=== PATIENT | male | born 1970 | race Caucasian/White ===

== ENCOUNTER 2017-05-16 08:27 | Emergency (ER) | payer BC ==
[2017-05-16 08:32] VITALS: BP 170/89
--- NOTE | 2017-05-16 08:49 | ER Document Report ---
ED Extremity Problem, Lower - General Chief Complaint: Foot Pain Stated Complaint: TOE PAIN Time Seen by Provider: 05/16/17 08:37 Mode of Arrival: Ambulatory Information source: Patient Notes: Patient is a 46-year-old male who presents to the ER today for ingrown toenail to the right great toe times about a week. Patient states that he is trying to take it out himself, "trim it up." He states that it has gotten infected and has pus coming from the area and is red, painful. He has been soaking intermittently which does help. He states that after soaking a few times it actually "cleared up." However the redness and pus is back again since yesterday. TRAVEL OUTSIDE OF THE [place] IN LAST 30 DAYS: No - Related Data Allergies/Adverse Reactions: No Known Allergies Allergy (Unverified 03/25/12 09:06) Past Medical History - General Information source: Patient - Social History Smoking Status: Never Smoker Chew tobacco use (# tins/day): No Frequency of alcohol use: Occasional Drug Abuse: None Family History: Reviewed & Not Pertinent Patient has suicidal ideation: No Patient has homicidal ideation: No - Past Medical History Cardiac Medical History: Reports: Hx Hypertension Denies: Hx Heart Attack Pulmonary Medical History: Denies: Hx Asthma Neurological Medical History: Denies: Hx Cerebrovascular Accident, Hx Seizures Renal/ Medical History: Denies: Hx Peritoneal Dialysis GI Medical History: Reports: Hx Gastroesophageal Reflux Disease. Denies: Hx Hepatitis, Hx Hiatal Hernia, Hx Ulcer Infectious Medical History: Denies: Hx Hepatitis Past Surgical History: Denies: Hx Open Heart Surgery, Hx Pacemaker Review of Systems - Review of Systems Constitutional: No symptoms reported EENT: No symptoms reported Cardiovascular: No symptoms reported Respiratory: No symptoms reported Gastrointestinal: No symptoms reported Genitourinary: No symptoms reported Male Genitourinary: No symptoms reported Musculoskeletal: No symptoms reported Skin: See HPI Hematologic/Lymphatic: No symptoms reported Neurological/Psychological: No symptoms reported Physical Exam - Vital signs Vitals: Temp Pulse Resp BP Pulse Ox 98.5 F 71 18 170/89 H 97 05/16/17 08:32 05/16/17 08:32 05/16/17 08:32 05/16/17 08:32 05/16/17 08:32 - Notes Notes: PHYSICAL EXAMINATION: GENERAL: Well-appearing and in no acute distress. HEAD: Atraumatic, normocephalic. EYES: Pupils equal round and reactive to light, extraocular movements intact, sclera anicteric, conjunctiva are normal. NECK: Normal range of motion, supple without lymphadenopathy LUNGS: CTAB and equal. No wheezes rales or rhonchi. HEART: Regular rate and rhythm without murmurs EXTREMITIES: Normal range of motion, no pitting edema. No cyanosis. NEUROLOGICAL: Cranial nerves grossly intact. Normal sensory/motor exams. PSYCH: Normal mood, normal affect. SKIN: Warm, Dry, normal turgor, erythema and purulence from medial side of right great toenail with ingrown toenail, tender to palpation Course - Re-evaluation Re-evalutation: 05/16/17 09:48 Patient placed on antibiotics and advised to soak in his hot water as he can stand with Epsom salt at least 4 times a day. 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 - Vital Signs Vital signs: Temp Pulse Resp BP Pulse Ox 98.5 F 71 18 170/89 H 97 05/16/17 08:32 05/16/17 08:32 05/16/17 08:32 05/16/17 08:32 05/16/17 08:32 Discharge - Discharge Clinical Impression: Ingrown toenail of right foot with infection Condition: Stable Disposition: HOME, SELF-CARE Additional Instructions: Return immediately for any new or worsening symptoms. Follow up with podiatry, call tomorrow to make followup appointment. Prescriptions: Sulfamethoxazole/Trimethoprim [Bactrim Ds Tablet] 1 each PO BID #20 tablet Referrals: SUMANTH HER MD [Primary Care Provider] - Follow up as needed
== END 2017-05-16 09:00 | disposition home or self-care (01) ==
LOC: ER 08:27
DX: L60.0 Ingrowing nail (principal); L03.031 Cellulitis of right toe; I10 Essential (primary) hypertension
CPT/HCPCS: 99283

== ENCOUNTER 2017-06-10 06:38 | Day surgery (SDC) | payer BC ==
[2017-06-10] MEDS ORDERED: GLYCOPYRROLATE INJ 0.4 MG/2 ML VIAL ONE (07:03)
[2017-06-10] MEDS ORDERED: NALOXONE HCL INJ/PF 0.4 MG/1 ML SDV ONE (07:03)
[2017-06-10] MEDS ORDERED: ONDANSETRON HCL INJ/PF 4 MG/2 ML SDV ONE (07:03)
[2017-06-10] MEDS ORDERED: GLUCAGON,HUMAN RECOMB 1 MG INJ ONE (07:04)
[2017-06-10] MEDS ORDERED: FENTANYL CITRATE INJ/PF 100 MCG/2 ML AMPUL ONE (07:04)
[2017-06-10] MEDS ORDERED: FLUMAZENIL INJ 0.5 MG/5 ML VIAL ONE (07:04)
[2017-06-10] MEDS ORDERED: EPINEPHRINE INJ 1 MG/10 ML DISP.SYRIN ONE (07:04)
[2017-06-10] MEDS: MIDAZOLAM 2 MG/2 ML INJ ONE ×4 (07:30→07:40)
--- NOTE | 2017-06-10 08:24 | Discharge Summary ---
Discharge Summary (SDC) - Discharge Final Diagnosis: Scattered diverticulosis Date of Surgery: 06/10/17 Discharge Date: 06/10/17 Condition: Good Treatment or Instructions: [facility] [place] [id number] POST ENDOSCOPY DISCHARGE INSTRUCTIONS 1. Diet: Start clear liquids that a regular diet as tolerated. 2. Resume all preoperative medications. All oral anticoagulants and aspirins can be resumed 24 hours after procedure. 3. If a polypectomy was performed some bleeding per rectum may occur. This should stop within 3 days. If not, please contact the office. 4. If you had a colonoscopy you may experience some bloating and delayed return of normal bowel function for several days, your regular bowel movement pattern should resume within a week. 5. Please contact [facility] at to make an appointment with Dr. Rodriguez for 1 to 3 weeks following procedure. 6. If you have any questions or concerns regarding your care,treatment plan or follow up, please contact our office. 7. Per clinical guidelines we recommend you undergo a repeat colonoscopy in 5- 7 years. Referrals: SUMANTH HER MD [Primary Care Provider] - Discharge Diet: As Tolerated Discharge Activity: Activity As Tolerated Home Care Assistance: None Needed Report the Following to Your Physician Immediately: Shortness of Breath, Increase in Pain, Fever over 101 Degrees
--- NOTE | 2017-06-10 08:26 | Operative Report ---
Operative Report DATE OF SURGERY: 06/10/17 PREOPERATIVE DIAGNOSIS: 1. Strong family history of colorectal carcinoma POSTOPERATIVE DIAGNOSIS: Same with scattered diverticulosis disease; otherwise normal colonoscopy OPERATION: Total colonoscopy to cecum with photodocumentation SURGEON: ALEKSEY FREITAS ANESTHESIA: Moderate Sedation TISSUE REMOVED OR ALTERED: None COMPLICATIONS: None ESTIMATED BLOOD LOSS: None INTRAOPERATIVE FINDINGS: See below PROCEDURE: Obtaining informed consent the patient was taken from the preoperative holding area to the main endoscopy suite where monitoring devices were attached to the patient. Plan and surgical timeout were conducted The patient was placed in the left lateral decubitus position with knees to chest. A perianal examination was performed. There was no visible or palpable anorectal pathology. Sphincter tone was felt to be normal. The flexible adult colonoscope was advanced through the anal rectal canal, all the way to the cecum. Visualization of the cecum was achieved and the ileocecal valve, the appendiceal orifice and transillumination of the anterior abdominal wall was achieved. This was an excellent study on the well-prepped bowel. The colonoscope was withdrawn slowly and methodically checked and the mucosa carefully. There was no evidence of tumor, stricture, bleeding or polyp. There were scattered diverticulosis, no more than 5 on the right colon. The scope was slowly withdrawn through the anal rectal canal. Complete visualization of the rectum was achieved with photodocumentation. The scope was withdrawn to the patient's anus. The patient tolerated the procedure well and was taken to the recovery area in stable condition. Given patient's strong family history of colorectal carcinoma young age, we have recommended endoscopy in 5-7 years.
[2017-06-10 09:12] VITALS: BP 123/75
== END 2017-06-10 09:02 | disposition home or self-care (01) ==
LOC: END 06:38
PROVIDERS: ATTEND Surgery
DX: Z12.11 Encounter for screening for malignant neoplasm of colon (principal); K57.30 Diverticulosis of large intestine without perforation or abscess without bleeding; Z80.0 Family history of malignant neoplasm of digestive organs; K21.9 Gastro-esophageal reflux disease without esophagitis; I10 Essential (primary) hypertension; F17.210 Nicotine dependence, cigarettes, uncomplicated; Z79.899 Other long term (current) drug therapy
CPT/HCPCS: 45378; J2250; J3010; J0171; J1610; J2310; J2405; J3490

== ENCOUNTER 2018-07-15 20:15 | Emergency (ER) | payer BC ==
[2018-07-15 20:31] VITALS: BP 157/84
[2018-07-15] MEDS ORDERED: ASPIRIN 81 MG TABLET, CHEWABLE PO ONE (21:58)
[2018-07-15] MEDS ORDERED: ONDANSETRON HCL INJ/PF 4 MG/2 ML SDV IV ONE (21:59)
--- NOTE | 2018-07-15 22:00 | ER Document Report ---
ED Medical Screen (RME) - General Chief Complaint: Chest Pain Stated Complaint: CHEST PAIN Time Seen by Provider: 07/15/18 21:58 Primary Care Provider: SUMANTH HER MD [Primary Care Provider] - Follow up as needed Notes: Patient is a 48-year-old male history of hypertension on 2 different hypertensive medications presents to the emergency department for pain in the left side of his chest. States the pain is been there for the last 3 days sharp and constant. States he had over 10 episodes of vomiting today and states the pain has increased which is why he presents to the emergency room. Patient's denying any blood in his emesis is denying any fever or diarrhea. Patient is denying any shortness of breath. States at times he feels as of the pain in the left side of his chest may increase upon deep palpation but he is denying any pain upon deep inspiration or movement of his left shoulder and arm. States at times the pain does move down his left arm. GENERAL: Alert, interacts well. No acute distress. LUNGS: Clear to auscultation bilaterally, no wheezes, rales, or rhonchi. No respiratory distress. HEART: Regular rate and rhythm. No murmur I have greeted and performed a rapid initial assessment of this patient. A comprehensive ED assessment and evaluation of the patient, analysis of test results and completion of the medical decision making process will be conducted by additional ED providers. TRAVEL OUTSIDE OF THE [place] IN LAST 30 DAYS: No - Related Data Allergies/Adverse Reactions: No Known Allergies Allergy (Verified 07/15/18 20:19) Past Medical History - Past Medical History Cardiac Medical History: Reports: Hx Hypertension Denies: Hx Coronary Artery Disease, Hx Heart Attack Pulmonary Medical History: Denies: Hx Asthma, Hx Bronchitis, Hx COPD, Hx Pneumonia Neurological Medical History: Denies: Hx Cerebrovascular Accident, Hx Seizures Renal/ Medical History: Denies: Hx Peritoneal Dialysis GI Medical History: Reports: Hx Gastroesophageal Reflux Disease. 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 Infectious Medical History: Denies: Hx Hepatitis Past Surgical History: Denies: Hx Open Heart Surgery, Hx Pacemaker - Immunizations Hx Diphtheria, Pertussis, Tetanus Vaccination: Yes Physical Exam - Vital signs Vitals: Temp Pulse Resp BP Pulse Ox 98.7 F 101 H 15 157/84 H 95 07/15/18 20:29 07/15/18 20:29 07/15/18 20:29 07/15/18 20:29 07/15/18 20:29 Course - Vital Signs Vital signs: Temp Pulse Resp BP Pulse Ox 98.7 F 101 H 15 157/84 H 95 07/15/18 20:29 07/15/18 20:29 07/15/18 20:29 07/15/18 20:29 07/15/18 20:29 Doctor's Discharge - Discharge Referrals: SUMANTH HER MD [Primary Care Provider] - Follow up as needed
--- NOTE | 2018-07-15 22:28 | RADIOLOGY REPORT (SQ) ---
EXAM DESCRIPTION: XR CHEST 1 VIEW COMPLETED DATE/TME: 07/15/2018 21:59 CLINICAL HISTORY: 48 years, Male, CP COMPARISON: None. NUMBER OF VIEWS: 1 TECHNIQUE: Portable chest LIMITATIONS: None. FINDINGS: The heart size is normal. Mild elevation right hemidiaphragm. Lungs clear. No pneumothorax IMPRESSION: No acute cardiopulmonary process copyright 2010 [employer]- All Rights Reserved
[2018-07-15 23:19] LABS: HEMATOCRIT 49.1 % (37.9-51.0); HEMOGLOBIN 16.4 g/dL (13.5-17.0); MEAN CORPUSCULAR HEMOGLOBIN 29.8 pg (27.0-33.4); MEAN CORPUSCULAR HGB CONC 33.4 g/dL (32.0-36.0); MEAN CORPUSCULAR VOLUME 89 fl (80-97); PLATELET COUNT 360 10^3/uL (150-450); RED BLOOD COUNT 5.51 10^6/uL (4.35-5.55); RED CELL DISTRIBUTION WIDTH 14.6 % (11.5-14.0); WHITE BLOOD COUNT 18.1 10^3/uL (4.0-10.5)
[2018-07-15 23:37] LABS: ALANINE AMINOTRANSFERASE 40 U/L (21-72); ALBUMIN 4.6 g/dL (3.5-5.0); ALKALINE PHOSPHATASE 39 U/L (38-126); ANION GAP 13 (5-19); ASPARTATE AMINO TRANSFERASE 41 U/L (17-59); BILIRUBIN,DIRECT 0.3 mg/dL (0.0-0.4); BILIRUBIN,TOTAL 0.5 mg/dL (0.2-1.3); BLOOD UREA NITROGEN 17 mg/dL (7-20); CALCIUM 9.6 mg/dL (8.4-10.2); CARBON DIOXIDE 27 mmol/L (22-30); CHLORIDE 99 mmol/L (98-107); CREATINE KINASE 342 U/L (55-170); GLUCOSE 102 mg/dL (75-110); POTASSIUM 4.3 mmol/L (3.6-5.0); SODIUM 139.1 mmol/L (137-145); TOTAL PROTEIN 7.3 g/dL (6.3-8.2)
[2018-07-15 23:40] LABS: ABSOLUTE LYMPHOCYTES# (MANUAL) 0.7 10^3/uL (0.5-4.7); ABSOLUTE MONOCYTES # (MANUAL) 0.7 10^3/uL (0.1-1.4); ABSOLUTE NEUTROPHILS# (MANUAL) 16.1 10^3/uL (1.7-8.2); BASOPHILS % (MANUAL) 0 % (0-2); EOSINOPHILS % (MANUAL) 3 % (0-6); LYMPHOCYTES % (MANUAL) 3 % (13-45); MONOCYTES % (MANUAL) 4 % (3-13); SEGMENTED NEUTROPHILS % (MAN) 89 % (42-78); TOTAL CELLS COUNTED 100
[2018-07-15 23:41] LABS: ANISOCYTOSIS SLIGHT; PLATELET COMMENT ADEQUATE; TOXIC GRANULATION SLIGHT
[2018-07-15 23:48] LABS: CREATINE KINASE MB 3.39 ng/mL (<4.55)
[2018-07-15 23:51] LABS: TROPONIN I < 0.012 ng/mL
--- NOTE | 2018-07-16 23:47 | EKG REPORT ---
SEVERITY:- NORMAL ECG - SINUS RHYTHM : Confirmed by: Ailyn Davila MD 16-Jul-2018 23:46:17
== END 2018-07-15 23:30 | disposition left against medical advice (07) ==
LOC: ER 20:15
DX: R07.9 Chest pain, unspecified (principal); R11.10 Vomiting, unspecified; I10 Essential (primary) hypertension; Z79.899 Other long term (current) drug therapy; Z53.20 Procedure and treatment not carried out because of patient's decision for unspecified reasons
CPT/HCPCS: 36415; 71045; 80053; 82550; 82553; 84484; 85025; 93005; 93010; 99281

== ENCOUNTER 2018-11-10 06:31 | Emergency (ER) | payer BC ==
[2018-11-10 06:42] VITALS: BP 194/89
[2018-11-10] MEDS ORDERED: LIDOCAINE 1% INJ (10 MG/ML) 10 ML MDV INJ ONE (07:01)
[2018-11-10] MEDS ORDERED: BUPIVACAINE HCL 0.5 % INJ/PF 30 ML SDV INJ ONE (07:01)
--- NOTE | 2018-11-10 07:03 | ER Document Report ---
HPI - HPI Time Seen by Provider: 11/10/18 06:58 Pain Level: 1 Context: Patient is a 48-year-old male that comes to the emergency department for chief complaint of a fishhook stuck in his left thumb. He states that it was brand- new, straight out of the box, he was packing for use later today when he accidentally caught the hook in his thumb and could not get it out. He is up-to-date on his tetanus within 5 years. He denies any other injuries or any other complaints. - REPRODUCTIVE Reproductive: DENIES: : Past Medical History - General Information source: Patient - Social History Smoking Status: Never Smoker Frequency of alcohol use: Occasional Drug Abuse: None Lives with: Family Family History: Reviewed & Not Pertinent Patient has suicidal ideation: No Patient has homicidal ideation: No - Past Medical History Cardiac Medical History: Reports: Hx Hypertension Denies: Hx Coronary Artery Disease, Hx Heart Attack Pulmonary Medical History: Denies: Hx Asthma, Hx Bronchitis, Hx COPD, Hx Pneumonia Neurological Medical History: Denies: Hx Cerebrovascular Accident, Hx Seizures Renal/ Medical History: Denies: Hx Peritoneal Dialysis GI Medical History: Reports: Hx Gastroesophageal Reflux Disease. 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 IN LAST 30 DAYS: No - HEENT HEENT: Atraumatic, Normocephalic - NECK Neck: Normal Inspection - RESPIRATORY Respiratory: Breath Sounds Normal, No Respiratory Distress - CARDIOVASCULAR Cardiovascular: Regular Rate, Regular Rhythm - GI/ABDOMEN Gastrointestinal: Abdomen Soft, Abdomen Non-Tender - BACK Back: Normal Inspection - MUSCULOSKELETAL/EXTREMETIES Musculoskeletal/Extremeties: MAEW, FROM, Tender - 1 of the 3 prongs of the fish hook is embedded over the lateral aspect of the left thumb just past the DIP. DIP range of motion intact, capillary refill and sensation intact, normal hand and thumb exam otherwise. - NEURO Level of Consciousness: Awake, Alert, Appropriate Motor/Sensory: No Motor Deficit, No Sensory Deficit - DERM Integumentary: Warm, Dry, No Rash Course - Re-evaluation Re-evalutation: I recommended an x-ray to evaluate where the hook had penetrated but patient declined. I discussed the reasoning for this but he declined. Tetanus is up-to-date. Digital block was performed, hook was cut, I was unable to position this to protrude the hook through the skin so I had to place a small cut with a scalpel adjacent to the nicole of the hook and then pull the hook out the same weight went in. This was performed without difficulty. No significant bleeding or deficits noted afterwards. Wound was clean, patient states this is never been in the water but because of the location of the wound we did decide to place him on prophylaxis with simply Keflex without appearing to need vibrio coverage. Discussed expectations, follow-up, and return precautions. Patient states understanding and appreciation. - Vital Signs Vital signs: Temp Pulse Resp BP Pulse Ox 98.1 F 89 17 194/89 H 96 11/10/18 06:37 11/10/18 06:37 11/10/18 06:37 11/10/18 06:37 11/10/18 06:37 Procedures - Additional Procedures Left thumb foreign body removal Additional Procedures: Other - Foreign body removal performed over left lateral thumb just past the DIP. Digital block was placed using a total of 6 mL's of combined 0.5% bupivacaine and 1% lidocaine with excellent results. Small incision was made adjacent to the at the bar with a scalpel, hook was then grasped with needle drivers and removed back in the way it came in without difficulty. No significant bleeding or deficits noted afterwards. Hook was removed and appeared completely intact. Discharge - Discharge Clinical Impression: Fishing hook foreign body Qualifiers: Encounter type: initial encounter Qualified Code(s): W45.8XXA - Other foreign body or object entering through skin, initial encounter Condition: Stable Disposition: HOME, SELF-CARE Instructions: Oral Narcotic Medication ([facility]) Additional Instructions: The fishhook foreign body has been removed. Keep area clean, clean with soap and water, apply topical antibiotic. Take prophylactic antibiotic as prescribed. Take ibuprofen or Tylenol for pain, take stronger pain medicine only for severe pain. Follow-up with primary care. Return for any concerning symptoms including developing pain, swelling, redness, discolored discharge, or any other concerning symptoms. Prescriptions: Cephalexin Monohydrate [Keflex 500 mg Capsule] 500 mg PO TID #15 capsule Referrals: SUMANTH HER MD [Primary Care Provider] - Follow up as needed
[2018-11-10] MEDS ORDERED: HYDROCODONE/ACETAMINOPHEN 5-325 MG (6 TAB/ER DISP) PO PRN (07:32)
== END 2018-11-10 07:58 | disposition home or self-care (01) ==
LOC: ER 06:31
DX: S61.042A Puncture wound with foreign body of left thumb without damage to nail, initial encounter (principal); W45.8XXA Other foreign body or object entering through skin, initial encounter; Y93.89 Activity, other specified; I10 Essential (primary) hypertension
CPT/HCPCS: 99283; 10120; J3490

== ENCOUNTER 2019-09-27 08:26 | Emergency (ER) | payer BC ==
[2019-09-27 09:27] VITALS: BP 140/71
--- NOTE | 2019-09-27 10:16 | ER Document Report ---
ED Fever - General Chief Complaint: Fever Stated Complaint: TONGUE SWELLING,COUGH,FEVER Time Seen by Provider: 09/27/19 09:32 Primary Care Provider: SUMANTH HER MD [Primary Care Provider] - Follow up as needed Mode of Arrival: Ambulatory Information source: Patient TRAVEL OUTSIDE OF THE [place] IN LAST 30 DAYS: No - HPI Notes: Patient presents with throat and tongue pain and swelling for 3 days. He states that he is also had fever and dry cough at home. He states he had a COVID test yesterday at his primary care doctor's office but the results are not yet in. He states no one else in the family has any similar symptoms. He states he has noticed sores all over his tongue and lips and that it is painful to eat or drink. He states the pain is constant and worse when eating or drinking and better with rest. The pain does not radiate. It is moderate to severe in a burning sensation. He states he got some medications that include Benadryl and lidocaine from his primary care doctor yesterday but these have not helped. - Related Data Allergies/Adverse Reactions: No Known Allergies Allergy (Verified 09/27/19 09:47) Past Medical History - General Information source: Patient - Social History Smoking Status: Never Smoker Frequency of alcohol use: None Drug Abuse: None Family History: Reviewed & Not Pertinent Patient has homicidal ideation: No - Past Medical History Cardiac Medical History: Reports: Hx Hypertension Denies: Hx Coronary Artery Disease, Hx Heart Attack Pulmonary Medical History: Denies: Hx Asthma, Hx Bronchitis, Hx COPD, Hx Pneumonia Neurological Medical History: Denies: Hx Cerebrovascular Accident, Hx Seizures Renal/ Medical History: Denies: Hx Peritoneal Dialysis GI Medical History: Reports: Hx Gastroesophageal Reflux Disease. 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 Denies: Hx Open Heart Surgery, Hx Pacemaker - Immunizations Hx Diphtheria, Pertussis, Tetanus Vaccination: Yes Review of Systems - Review of Systems Constitutional: Chills, Fever Cardiovascular: denies: Chest pain, Palpitations Respiratory: Cough. denies: Short of breath -: Yes All other systems reviewed and negative Physical Exam - Vital signs Vitals: Temp 99.1 F 09/27/19 09:00 Interpretation: Normal - General General appearance: Appears well, Alert - HEENT Head: Normocephalic, Atraumatic Eyes: Normal Pupils: PERRL Mucous membranes: Moist Pharynx: Erythema, Other - Multiple aphthous ulcers are seen in the posterior pharynx. Patient also has numerous aphthous ulcers about the tongue and lips. No: Potential airway comprom. Neck: Normal - Respiratory Respiratory status: No respiratory distress Chest status: Nontender Breath sounds: Normal Chest palpation: Normal - Cardiovascular Rhythm: Regular Heart sounds: Normal auscultation Murmur: No - Abdominal Inspection: Normal Distension: No distension Bowel sounds: Normal Tenderness: Nontender Organomegaly: No organomegaly - Back Back: Normal, Nontender - Extremities General upper extremity: Normal inspection, Nontender, Normal color, Normal ROM, Normal temperature General lower extremity: Normal inspection, Nontender, Normal color, Normal ROM, Normal temperature, Normal weight bearing. No: Kush's sign - Neurological Neuro grossly intact: Yes Cognition: Normal Orientation: AAOx4 [place] Coma Scale Eye Opening: Spontaneous Ingrid Coma Scale Verbal: Oriented Ingrid Coma Scale Motor: Obeys Commands Ingrid Coma Scale Total: 15 Speech: Normal Motor strength normal: LUE, RUE, LLE, RLE Sensory: Normal - Psychological Associated symptoms: Normal affect, Normal mood - Skin Skin Temperature: Warm Skin Moisture: Dry Skin Color: Normal Course - Re-evaluation Re-evalutation: 09/27/19 10:17 Patient appears to have a significant case of ulcerative stomatitis. I called and discussed the case with the ear nose and throat doctor, Dr. Acuna. He asked me to give the patient medications and include antibiotics by mouth as well as antibiotic ointment. He also fax me over a compound suspension that the patient is to swish and swallow. I have called all of these medications into the patient's drugstore. - Vital Signs Vital signs: Temp Pulse Resp BP Pulse Ox 99.1 F 93 18 140/71 H 99 09/27/19 09:25 09/27/19 09:25 09/27/19 09:25 09/27/19 09:25 09/27/19 09:25 Discharge - Discharge Clinical Impression: Stomatitis, ulcerative Condition: Stable Disposition: HOME, SELF-CARE Instructions: Viral Syndrome ([facility]) Additional Instructions: If your condition worsens before you are able to see the ear nose and throat doctor, then please return to the emergency department for evaluation. Prescriptions: Hydrocodone/Acetaminophen [Lortab 7.5-325 mg/15 ml Oral Soln] 10 ml PO Q6H PRN 3 Days #120 ml PRN Reason: Forms: Return to Work Referrals: MARY ACUNA DO [ASSOCIATE] - 10/12/19 1:00 pm
== END 2019-09-27 10:29 | disposition home or self-care (01) ==
LOC: ER 08:26
DX: K12.1 Other forms of stomatitis (principal); K12.0 Recurrent oral aphthae; R50.9 Fever, unspecified; R05 Cough; I10 Essential (primary) hypertension
CPT/HCPCS: 99283

== ENCOUNTER → 2019-12-15 | Outpatient (CLI) | payer BC ==
--- NOTE | 2019-12-15 16:24 | RADIOLOGY REPORT (SQ) ---
EXAM DESCRIPTION: MRI LT UPPER JOINT WITHOUT IMAGES COMPLETED DATE/TIME: 12/15/2019 8:05 am REASON FOR STUDY: M66.822 SPONTANEOUS RUPTURE OF OTHER TENDONS, LEFT UPPER ARM M66.822 SPONTANEOUS RUPTURE OF OTHER TENDONS, LEFT UPPER ARM COMPARISON: None. TECHNIQUE: Left elbow images acquired and stored on PACS. Multiplanar images to include fat sensiti ve sequences as T1, fluid sensitive sequences as T2/STIR, cartilage sensitive sequences as FSPD, and gradient echo sequences. LIMITATIONS: None. FINDINGS: BONE MARROW: No alteration of signal to suggest marrow replacement or edema. No occult fra cture. No large osteophytes. JOINT EFFUSION: None noted. No loose bodies. ARTICULAR SURFACES: Normal. MEDIAL COLLATERAL LIGAMENT COMPLEX: Intact without edema or tear. MEDIAL EPICONDYLE AND COMMON FLEXOR TENDON: No tendinopathy. No partial or full-thickness tear. LATERAL COLLATERAL LIGAMENT: Partial tear proximally. LATERAL EPICONDYLE AND COMMON EXTENSOR TENDON: Epicondyle normal. Partial tear at origin of the comm on extensor tendon. LATERAL ULNAR COLLATERAL LIGAMENT: Intact without evidence for tear. BICEPS TENDON: Completely torn and retracted with a bald of appearance. Fluid along the expected cou rse tracking to the musculotendinous junction. Retraction is greater than 10 cm. TRICEPS TENDON: Intact. ULNAR NERVE: Well-visualized without edema or encroachment. ADJACENT SOFT TISSUES: No masses or edema. OTHER: No other significant finding. IMPRESSION: 1. Complete biceps disruption with retraction. 2. Lateral epicondylitis. TECHNICAL DOCUMENTATION: JOB ID: [id number] 2010 [employer]- All Rights Reserved Reading location - IP/workstation name: [email or web address]
== END ==
LOC: RAD 07:19
PROVIDERS: ATTEND Physician Assistant
DX: M66.822 Spontaneous rupture of other tendons, left upper arm (principal)

== ENCOUNTER → 2019-12-21 | Outpatient (CLI) | payer BC ==
[2019-12-21 19:01] LABS: POTASSIUM 4.2 mmol/L (3.6-5.0)
== END ==
LOC: LAB 17:09
PROVIDERS: ATTEND Anesthesiology
DX: Z01.812 Encounter for preprocedural laboratory examination (principal)
CPT/HCPCS: 36415; 80051

== ENCOUNTER 2019-12-26 20:45 | Emergency (ER) | payer BC ==
[2019-12-26 20:55] VITALS: BP 145/67
--- OUTSIDE RECORDS SUMMARY | 2019-12-28 17:45 | XMS REPORT ---
:1970 [facility] [address] [place] [address] Care Team Providers Name Role Phone Unavailable Unavailable Unavailable Allergies, Adverse Reactions, Alerts This patient has no known allergies or adverse reactions. Medications Ordered Filled Start Stop Current Ordering Indication Dosage Frequency Signature Comments Components Medication Medication Date Date Medication? Clinician (SIG) Name Name lansoprazol No lansoprazo e 30 mg le 30 mg capsule,del capsule,de ayed layed release release lisinopril No lisinopril 20 20 mg-hydrochl mg-hydroch orothiazide lorothiazi 12.5 mg de 12.5 mg tablet tablet meloxicam No meloxicam 15 mg 15 mg tablet tablet Keflex 500 No 1capsul QID Keflex 500 mg capsule e(s) mg capsule Take 1 Take 1 capsule 4 capsule 4 times a day times a by oral day by route for 3 oral route days. for 3 days. Percocet 5 No Percocet 5 mg-325 mg mg-325 mg tablet Take tablet 1 tablet Take 1 EVERY 4-6 tablet HOURS by EVERY 4-6 oral route. HOURS by oral route. promethazin No 1 Q6H promethazi e 25 mg ne 25 mg tablet Take tablet 1 tablet Take 1 every 6 tablet hours by every 6 oral route hours by as needed. oral route as needed. Problems Condition Condition Condition Status Onset Resolution Last Treatin g Comments Name Details Category Date Date Treatment Clinician Date Knee joint Knee Joint Problem Active effusion Effusion 5-14 00:00: 00 Derangement Derangement Problem Active of knee of Knee 4-20 00:00: 00 Osteoarthri Osteoarthri Problem Active tis of knee tis of Knee 4-10 00:00: 00 Knee pain Knee Pain Problem Active 05-25 00:00: 00 Procedures Procedure Date / Time Performed Performing Clinician Lowell burton XR, elbow 2019-12-11 00:00:00 MRI, elbow, w/o contrast 2019-12-11 00:00:00 Knee Surgery 2014-07-12 00:00:00 Knee Surgery 2000-02-16 00:00:00 Knee Surgery 1995-02-15 00:00:00 Results This patient has no known results. Assessments Condition Name Status Diagnosis Date Treating Clinici an Tear of distal tendon of biceps brachii Active 07:40:19 Muscle atrophy Active 2019-12-21 15:38:11 Tear of distal tendon of biceps brachii Active 15:25:18 Rupture of tendon of biceps Active 2019-12-11 14:37:48 Pain in elbow Active 2019-12-11 14:13:36 Tear of distal tendon of biceps brachii Active 14:46:48 Encounters Start End Encounter Admission Attending Care Care Encounter Date/Time Date/Time Type Type Clinicians Facility Department ID 2019-12-21 2019-12-21 [id number] 00:00:00 00:00:00 DAVID Galindo ho, P.A. , P.A. 23849 PA-C: [address] [place] [phone], Ph. 2019-12-18 2019-12-18 [id number] 00:00:00 00:00:00 MD Reanna: Lila campa , P.A. [address] [place] [phone], Ph. 2019-12-11 2019-12-11 [facility] 9464 [id number] 00:00:00 00:00:00 DAVID Galindo ho, P.A. , P.A. [address] PA-C: [address] [phone], Ph. Plan of Treatment Planned Activity Planned Date Details Comments Future Appointment 2020-02-05 09:25:00 Gabriel Forte, [address] [facility] [address]; , [place] [address] Future Appointment 2020-01-15 10:40:00 Federico Galindo, [address] [place] [address]; [address], [place] [address] Future Appointment 2020-01-08 09:55:00 Federico Galindo, [address] [facility]; [address], [place] [address] Future Appointment 2019-12-29 10:30:00 Woody Ruiz, [address]; , [place] [address] Social History Smoking Status Start Date Stop Date Never Smoker Vital Signs Vital Name Observation Time Observation Value Comments Height 2019-12-21 00:00:00 75 [in_i] BMI (Body Mass Index) 2019-12-21 00:00:00 30 kg/m2 Body Weight 2019-12-21 00:00:00 240 [lb_av] Height 2019-12-11 00:00:00 75 [in_i] BMI (Body Mass Index) 2019-12-11 00:00:00 30 kg/m2 Body Weight 2019-12-11 00:00:00 240 [lb_av] Height 2019-12-11 00:00:00 75 [in_i] BMI (Body Mass Index) 2019-12-11 00:00:00 30 kg/m2 Body Weight 2019-12-11 00:00:00 240 [lb_av] Hospital Discharge Instructions 1. Pain in elbow XR, elbow 2. Rupture of tendon of biceps MRI, elbow, w/o contrast - PIYUSH per Josie FU with Demetrice / tls 3. Tear of distal tendon of biceps brachii Discussion Note: None recorded. Patient educational handouts: No information available.
== END 2019-12-26 21:35 | disposition left against medical advice (07) ==
LOC: ER 20:45
DX: Z53.21 Procedure and treatment not carried out due to patient leaving prior to being seen by health care provider (principal)

== ENCOUNTER 2020-01-02 05:06 | Emergency (ER) | payer BC ==
--- NOTE | 2020-01-02 09:13 | ER Document Report ---
Entered by COLBY BAUMAN SCRIBE 01/02/20 0829 Acting as scribe for:OG RAHMAN MD ED Suture/Wound Recheck - General Chief Complaint: Wound Recheck Stated Complaint: BLEEDING Time Seen by Provider: 01/02/20 08:26 Primary Care Provider: SUMANTH HER MD [Primary Care Provider] - Follow up as needed Mode of Arrival: Ambulatory Information source: Patient Notes: This 49 year old male patient who is x7 days post op left biceps tendon repair done by Dr. Robledo with [facility] in [place] presents to the ED today for suture recheck. Patient reports that the surgical wound has been bleeding and now there are only x7 sutures instead of x9. He states that his follow-up appointment for suture removal is on 12/07. TRAVEL OUTSIDE OF THE [place] IN LAST 30 DAYS: No - Related Data Allergies/Adverse Reactions: No Known Allergies Allergy (Verified 01/02/20 05:17) Past Medical History - General Information source: Patient, [facility] Records - Social History Smoking Status: Former Smoker Cigarette use (# per day): No Chew tobacco use (# tins/day): No Smoking Education Provided: No Frequency of alcohol use: None Drug Abuse: None Family History: Reviewed & Not Pertinent Patient has suicidal ideation: No Patient has homicidal ideation: No - Past Medical History Cardiac Medical History: Reports: Hx Hypertension GI Medical History: Reports: Hx Gastroesophageal Reflux Disease Musculoskeletal Medical History: Reports Hx Arthritis - BILAT KNEES Past Surgical History: Reports: Hx Orthopedic Surgery - Bilateral ACL repairs, Left MCL repair - Immunizations Hx Diphtheria, Pertussis, Tetanus Vaccination: Yes Review of Systems - Review of Systems Constitutional: No symptoms reported EENT: No symptoms reported Cardiovascular: No symptoms reported Respiratory: No symptoms reported Gastrointestinal: No symptoms reported Genitourinary: No symptoms reported Male Genitourinary: No symptoms reported Musculoskeletal: No symptoms reported Skin: See HPI Hematologic/Lymphatic: No symptoms reported Neurological/Psychological: No symptoms reported -: Yes All other systems reviewed and negative Physical Exam - Vital signs Vitals: Temp Pulse Resp BP Pulse Ox 98.2 F 84 16 186/93 H 99 01/02/20 05:16 01/02/20 05:16 01/02/20 05:16 01/02/20 05:16 01/02/20 05:16 - General General appearance: Alert In distress: None - HEENT Head: Normocephalic, Atraumatic Eyes: Normal Pupils: PERRL - Respiratory Respiratory status: No respiratory distress Chest status: Nontender Breath sounds: Normal Chest palpation: Normal - Cardiovascular Rhythm: Regular Heart sounds: Normal auscultation Murmur: No Friction rub: No Gallop: None auscultated - Abdominal Inspection: Normal Distension: No distension Bowel sounds: Normal Tenderness: Nontender - Abdomen soft Organomegaly: No organomegaly - Back Back: Normal, Nontender - Extremities General upper extremity: Other - Left upper arm is ecchymotic with no significant swelling.. No: Normal temperature - Left forearm is warm compared to right General lower extremity: Normal inspection. No: Edema Forearm: Other - There is swelling to the left forearm from above the wrist to the elbow with surrounding ecchymosis. There is firm indurated tissue noted to the medial forearm. The bottom half of the surgical wound has some bleeding coming from between the sutures. Wrist: Other - There is a good radial pulse at the left wrist. Hand: Normal - Skin is warm, dry, sensory intact. - Neurological Neuro grossly intact: Yes Orientation: AAOx4 [place] Coma Scale Eye Opening: Spontaneous Ingrid Coma Scale Verbal: Oriented [place] Coma Scale Motor: Obeys Commands Ingrid Coma Scale Total: 15 - Psychological Associated symptoms: Normal affect, Normal mood - Skin Skin Temperature: Warm Skin Moisture: Dry Skin Color: Normal Course - Re-evaluation Re-evalutation: 01/02/20 11:41 I discussed the case with the patient's orthopedic surgeon, Dr. Robledo. The lab work was not suggestive of an infectious problem. He told me the patient was supposed to be wearing a posterior arm splint, and that if he did not have one with him to put back on, he asked that I place a posterior splint on the patient with Stalin wrap compression to prevent the arm from swelling further. Went to speak with the patient after discussing the case with his orthopedic surgeon. It appears he had eloped and the room had already been cleaned and prepared for another patient. The nurses had no clue that he had left until I asked where the patient was. I do not recall seeing a splint in the room, so he likely removed that at home and that is part of the problem he is experiencing now. I will asked the nurse to contact the patient and let him know that his doctor had requested that he have a splint put back on, or that he put the splint he was originally provided back on the arm. - Vital Signs Vital signs: Temp Pulse Resp BP Pulse Ox 98.4 F 87 18 152/88 H 99 01/02/20 11:14 01/02/20 11:14 01/02/20 11:14 01/02/20 11:14 01/02/20 11:14 - Laboratory Result Diagrams: 01/02/20 09:16 01/02/20 09:16 Laboratory results interpreted by me: 01/02/20 01/02/20 09:16 09:16 WBC 10.7 H RDW 14.4 H ALT 53 H C-Reactive Protein 17.5 H - Consults Dr. Robledo Time consulted: 11:36 Consulted provider: follow-up in office - I spoke with Dr. Robledo who did the patient surgery. He states the patient was supposed to have a posterior splint on which would help tamponade the arm and would have prevented some of the swelling and bleeding that he is experienced. He requested a put a posterior splint on the patient. Discharge - Discharge Clinical Impression: Left arm swelling, Non-compliance Post-op bleeding Qualifiers: Surgical complication system/body Area: musculoskeletal system Procedure type: musculoskeletal Qualified Code(s): M96.830 - Postprocedural hemorrhage of a musculoskeletal structure following a musculoskeletal system procedure Condition: Stable Disposition: ELOPED Referrals: SUMANTH HER MD [Primary Care Provider] - Follow up as needed I personally performed the services described in the documentation, reviewed and edited the documentation which was dictated to the scribe in my presence, and it accurately records my words and actions.
[2020-01-02 09:40] LABS: ABSOLUTE BASOPHILS # (AUTO) 0.1 10^3/uL (0.0-0.2); ABSOLUTE EOSINOPHILS # (AUTO) 0.3 10^3/uL (0.0-0.6); ABSOLUTE LYMPHOCYTES (AUTO) 1.5 10^3/uL (0.5-4.7); ABSOLUTE MONOCYTES (AUTO) 0.8 10^3/uL (0.1-1.4); ABSOLUTE NEUT (AUTO) 8.1 10^3/uL (1.7-8.2); BASOPHILS % (AUTO) 0.7 % (0-2); EOSINOPHILS % (AUTO) 2.5 % (0-6); HEMATOCRIT 41.5 % (37.9-51.0); HEMOGLOBIN 13.9 g/dL (13.5-17.0); LYMPHOCYTES % (AUTO) 13.6 % (13-45); MEAN CORPUSCULAR HEMOGLOBIN 29.9 pg (27.0-33.4); MEAN CORPUSCULAR HGB CONC 33.6 g/dL (32.0-36.0); MEAN CORPUSCULAR VOLUME 89 fl (80-97); MONOCYTES % (AUTO) 7.5 % (3-13); PLATELET COUNT 345 10^3/uL (150-450); RED BLOOD COUNT 4.66 10^6/uL (4.35-5.55); RED CELL DISTRIBUTION WIDTH 14.4 % (11.5-14.0); SEGMENTED NEUTROPHILS % (AUTO) 75.7 % (42-78); TOTAL CELLS COUNTED % (AUTO) 100 %; WHITE BLOOD COUNT 10.7 10^3/uL (4.0-10.5)
[2020-01-02 09:57] LABS: ALBUMIN 4.3 g/dL (3.5-5.0); ALKALINE PHOSPHATASE 66 U/L (38-126); ANION GAP 11 (5-19); ASPARTATE AMINO TRANSFERASE 54 U/L (17-59); BILIRUBIN,DIRECT 0.1 mg/dL (0.0-0.4); BILIRUBIN,TOTAL 0.8 mg/dL (0.2-1.3); BLOOD UREA NITROGEN 17 mg/dL (7-20); C-REACTIVE PROTEIN 17.5 mg/L (<10.0); CALCIUM 10.1 mg/dL (8.4-10.2); CARBON DIOXIDE 25 mmol/L (22-30); CHLORIDE 101 mmol/L (98-107); GLUCOSE 110 mg/dL (75-110); POTASSIUM 4.8 mmol/L (3.6-5.0); TOTAL PROTEIN 7.1 g/dL (6.3-8.2)
[2020-01-02 10:16] LABS: ERYTHROCYTE SEDIMENTATION RATE 20 mm/hr (0-20)
[2020-01-02 11:16] VITALS: BP 152/88
== END 2020-01-02 11:55 | disposition left against medical advice (07) ==
LOC: ER 05:06
DX: M96.830 Postprocedural hemorrhage of a musculoskeletal structure following a musculoskeletal system procedure (principal); Y83.8 Other surgical procedures as the cause of abnormal reaction of the patient, or of later complication, without mention of misadventure at the time of the procedure; Z91.19 Patient's noncompliance with other medical treatment and regimen; I10 Essential (primary) hypertension; Z87.891 Personal history of nicotine dependence
CPT/HCPCS: 36415; 80053; 82550; 85025; 85652; 86140; 87040; 99281